=== PATIENT | male | born 1945 | race Two or more races ===

== ENCOUNTER 2020-09-06 13:15 | Outpatient (REF) | payer MEDICARE, SELFPAY | END 2020-09-06 13:16 | disposition home or self-care (01) | LOC: HO.HMGCLDS 13:15 | PROVIDERS: PCP Internal Medicine; Visit Provider Internal Medicine | DX: Z20.828 Contact with and (suspected) exposure to other viral communicable diseases (principal) | CPT/HCPCS: C9803; U0003 ==

== ENCOUNTER 2020-09-29 12:47 | Outpatient (REF) | payer MEDICARE, SELFPAY ==
[2020-09-29 14:00] LABS: MANUAL DIFF FLAG NO
[2020-09-29 14:02] LABS: Basophils Absolute Auto 0.1 X10*3/uL (0.0-0.2); Basophils Percent Auto 0.9 % (0-2); Eosinophils Absolute Auto 0.1 X10*3/uL (0.0-0.4); Eosinophils Percent Auto 1.7 % (0-4); Hematocrit 38.9 % (42-52); Hemoglobin 13.4 g/dl (14.0-18.0); Imm Gran Abs Auto 0.02 X10*3/uL (0.00-0.03); Imm Gran Pct Auto 0.2 % (0.0-0.4); Lymphocytes Absolute Auto 2.5 X10*3/uL (1.2-4.9); Lymphocytes Percent Auto 30.6 % (20-40); Mean Corpuscular HGB Conc 34.4 g/dl (31.0-36.0); Mean Corpuscular Hemoglobin 30.8 pg (27.0-33.0); Mean Corpuscular Volume 89.4 fL (80-98); Mean Platelet Volume 10.1 fL (9.4-12.4); Monocytes Absolute Auto 0.9 X10*3/uL (0.1-1.2); Monocytes Percent Auto 10.5 % (2-11); Neutrophils Absolute Auto 4.6 X10*3/uL (2.0-8.3); Neutrophils Percent Auto 56.1 % (45-73); Platelet Count 207 X10*3/uL (160-400); Red Blood Count 4.35 X10*6/uL (4.60-5.80); Red Cell Distribution Width 11.9 % (11.0-16.0); White Blood Count 8.2 X10*3/uL (4.8-10.8)
[2020-09-29 14:33] LABS: Alanine Aminotransferase 34 U/L (0-40); Albumin Level 4.1 g/dL (3.5-5.0); Alkaline Phosphatase 83 U/L (39-117); Anion Gap 11 (12-20); Aspartate Amino Transferase 24 U/L (5-37); Bilirubin Total 0.7 mg/dL (0.0-1.0); Blood Urea Nitrogen 35 mg/dL (9-16); Calcium 9.1 mg/dL (8.4-10.2); Carbon Dioxide 28 mmol/L (22-29); Chloride 104 mmol/L (96-108); Cholesterol 125 mg/dL; Estimated Glomerular Filt Rate 41; Glucose Random 104 mg/dL (60-115); HDL Cholesterol 37 mg/dL; LDL Cholesterol Calculated 75 mg/dl; Potassium 4.4 mmol/l (3.3-5.1); Sodium 139 mmol/L (135-145); Total Protein 7.7 g/dL (6.5-8.0); Triglycerides 68 mg/dL
[2020-09-29 14:51] LABS: Vitamin B12 483 pg/mL (200-900)
== END 2020-09-29 12:48 | disposition home or self-care (01) ==
LOC: HO.HMGCLDS 12:47
PROVIDERS: Internal Medicine; PCP Internal Medicine; Visit Provider Internal Medicine
DX: E78.00 Pure hypercholesterolemia, unspecified (principal); E11.65 Type 2 diabetes mellitus with hyperglycemia; N40.0 Benign prostatic hyperplasia without lower urinary tract symptoms; E11.22 Type 2 diabetes mellitus with diabetic chronic kidney disease; N18.30 Chronic kidney disease, stage 3 unspecified
CPT/HCPCS: 36415; 80053; 80061; 82607; 84443; 85025

== ENCOUNTER → 2020-10-07 09:27 | Outpatient (BNVA) | payer MEDICARE, SELFPAY | PROVIDERS: PCP Internal Medicine; Referring Provider Internal Medicine; Visit Provider Nurse Practitioner Gerontology | DX: E11.65 Type 2 diabetes mellitus with hyperglycemia (principal); E11.22 Type 2 diabetes mellitus with diabetic chronic kidney disease; N18.30 Chronic kidney disease, stage 3 unspecified; E78.00 Pure hypercholesterolemia, unspecified | CPT/HCPCS: 82947; Q3014 ==

== ENCOUNTER 2020-10-07 11:42 | Outpatient (REF) | payer MEDICARE, SELFPAY ==
[2020-10-07 14:10] LABS: Estimated Average Glucose 154 mg/dL
[2020-10-13 06:17] LABS: Fructosamine 322 umol/L (205-285)
== END 2020-10-07 11:43 | disposition home or self-care (01) ==
LOC: HO.10HDL 11:42
PROVIDERS: Visit Provider Nurse Practitioner Gerontology
DX: E11.22 Type 2 diabetes mellitus with diabetic chronic kidney disease (principal); N18.30 Chronic kidney disease, stage 3 unspecified
CPT/HCPCS: 82985; 83036

== ENCOUNTER → 2020-11-11 08:41 | Outpatient (BNVA) | payer MEDICARE, SELFPAY | PROVIDERS: PCP Internal Medicine; Visit Provider Nurse Practitioner Gerontology | DX: E11.65 Type 2 diabetes mellitus with hyperglycemia (principal); E11.22 Type 2 diabetes mellitus with diabetic chronic kidney disease; N18.30 Chronic kidney disease, stage 3 unspecified; E78.00 Pure hypercholesterolemia, unspecified | CPT/HCPCS: Q3014 ==

== ENCOUNTER → 2020-11-24 12:53 | Outpatient (BNVA) | payer MEDICARE, OTHER, SELFPAY | PROVIDERS: PCP Internal Medicine; Visit Provider Urology | DX: R39.15 Urgency of urination (principal); R19.12 Hyperactive bowel sounds; N40.0 Benign prostatic hyperplasia without lower urinary tract symptoms | CPT/HCPCS: 51798; 81002; 99202 ==

== ENCOUNTER 2020-12-13 13:57 | Outpatient (REF) | payer MEDICARE, OTHER, SELFPAY ==
--- NOTE | ~2020-12-13 | US_ITS ---
EXAMINATION: US PELVIS LIMITED (BLADDER) CLINICAL INFORMATION: Poor urinary stream. COMPARISON: None TECHNIQUE: Real-time imaging of the bladder. FINDINGS: BLADDER: Urinary bladder wall is thickened. There is a large median lobe of the prostate gland impressing upon the inferior posterior aspect of the urinary bladder. Bilateral ureteral jets are demonstrated. Prevoid bladder volume is 298 mL. Postvoid bladder volume is 107 mL. US/US bladder IMPRESSION: Thick-walled urinary bladder with large post void residual. Enlarged prostate gland with large median lobe.
== END 2020-12-13 13:58 | disposition home or self-care (01) ==
LOC: HO.US 13:57
PROVIDERS: PCP Internal Medicine; Visit Provider Urology
DX: R39.12 Poor urinary stream (principal); N40.0 Benign prostatic hyperplasia without lower urinary tract symptoms
CPT/HCPCS: 76857

== ENCOUNTER → 2021-03-01 10:26 | Outpatient (BNVA) | payer MEDICARE, SELFPAY | PROVIDERS: PCP Internal Medicine; Visit Provider Nurse Practitioner Gerontology | DX: E11.65 Type 2 diabetes mellitus with hyperglycemia (principal); E11.22 Type 2 diabetes mellitus with diabetic chronic kidney disease; N18.30 Chronic kidney disease, stage 3 unspecified; E78.00 Pure hypercholesterolemia, unspecified | CPT/HCPCS: 82947; Q3014 ==

== ENCOUNTER → 2021-03-31 07:24 | Outpatient (BNVA) | payer MEDICARE, SELFPAY | PROVIDERS: PCP Internal Medicine; Visit Provider Nurse Practitioner Gerontology | CPT/HCPCS: Q3014 ==

== ENCOUNTER → 2021-05-02 10:44 | Outpatient (BNVA) | payer MEDICARE, SELFPAY | PROVIDERS: PCP Internal Medicine; Visit Provider Nurse Practitioner Gerontology | DX: E11.65 Type 2 diabetes mellitus with hyperglycemia (principal); E11.22 Type 2 diabetes mellitus with diabetic chronic kidney disease; N18.30 Chronic kidney disease, stage 3 unspecified; E78.00 Pure hypercholesterolemia, unspecified; Z79.4 Long term (current) use of insulin | CPT/HCPCS: Q3014 ==

== ENCOUNTER 2021-05-10 10:16 | Outpatient (REF) | payer MEDICARE, SELFPAY ==
[2021-05-10 11:30] LABS: Estimated Average Glucose 154 mg/dL
[2021-05-10 12:08] LABS: Creatinine Urine 97.05 mg/dL; Microalbum/Creatinine Ratio Ur 48.4 ug/mg cr
[2021-05-10 12:11] LABS: Alanine Aminotransferase 39 U/L (0-40); Albumin Level 4.1 g/dL (3.5-5.0); Alkaline Phosphatase 92 U/L (39-117); Anion Gap 13 (12-20); Aspartate Amino Transferase 26 U/L (5-37); Bilirubin Total 0.7 mg/dL (0.0-1.0); Blood Urea Nitrogen 30 mg/dL (9-16); Calcium 9.7 mg/dL (8.4-10.2); Carbon Dioxide 23 mmol/L (22-29); Chloride 107 mmol/L (96-108); Cholesterol 138 mg/dL; Estimated Glomerular Filt Rate 38; Glucose Fasting 133 mg/dL (60-99); HDL Cholesterol 31 mg/dL; LDL Cholesterol Calculated 74 mg/dl; Potassium 4.7 mmol/L (3.3-5.1); Sodium 138 mmol/L (135-145); Total Protein 7.8 g/dL (6.5-8.0); Triglycerides 169 mg/dL
== END 2021-05-10 10:17 | disposition home or self-care (01) ==
LOC: HO.LAB 10:16
PROVIDERS: PCP Physician Assistant Medical; Visit Provider Nurse Practitioner Gerontology
DX: E11.22 Type 2 diabetes mellitus with diabetic chronic kidney disease (principal); N18.30 Chronic kidney disease, stage 3 unspecified
CPT/HCPCS: 36415; 80053; 80061; 82043; 83036

== ENCOUNTER → 2021-08-31 13:22 | Outpatient (BNVA) | payer MEDICARE, OTHER, SELFPAY | PROVIDERS: PCP Physician Assistant Medical; Visit Provider Nurse Practitioner Gerontology | CPT/HCPCS: Q3014 ==

== ENCOUNTER → 2021-12-01 10:53 | Outpatient (BNVA) | payer MEDICARE, SELFPAY | PROVIDERS: PCP Physician Assistant Medical; Visit Provider Urology | DX: N40.1 Benign prostatic hyperplasia with lower urinary tract symptoms (principal); R39.12 Poor urinary stream; R39.15 Urgency of urination; R33.8 Other retention of urine | CPT/HCPCS: 52000; 99212 ==

== ENCOUNTER → 2022-01-26 12:00 | Outpatient (BNVA) | payer MEDICARE, SELFPAY | PROVIDERS: PCP Physician Assistant Medical; Visit Provider Nurse Practitioner Gerontology | DX: E11.65 Type 2 diabetes mellitus with hyperglycemia (principal); E11.22 Type 2 diabetes mellitus with diabetic chronic kidney disease; N18.9 Chronic kidney disease, unspecified; E78.00 Pure hypercholesterolemia, unspecified | CPT/HCPCS: 82947; 83036; 99212 ==

== ENCOUNTER 2022-02-02 12:05 | Emergency (ER) | payer MEDICARE, SELFPAY ==
--- NOTE | 2022-02-02 12:20 | ED_ITS ---
HPI - General Adult General Chief complaint: Urogenital-Male Stated complaint: painful urination, burning Time Seen by Provider: 02/02/22 12:20 Source: patient and family Mode of arrival: ambulatory Limitations: language barrier (declined lang interpreter) History of Present Illness HPI narrative: 32 more year old male with a history of high cholesterol, glaucoma mild, diabetes, chronic kidney disease, anemia, BPH followed by Urology (on finasteride 5mg, flomax 0.8mg) here with reports of 1 month of dysuria, voiding small amounts, feeling like he is retaining his urine with testicular discomfort. No fevers, chills, abdominal pain, back pain, vomiting. Related Data Home Medications Medication Instructions Recorded Confirmed oxygen-air delivery systems #1 07/28/20 01/02/22 Previous Rx's Medication Instructions Recorded bimatoprost 0.01 % eye drops 1 drp OPHTHALMIC (EYE) DAILY #7.5 09/16/20 (Lumigan) ml dorzolamide 2 %-timolol 0.5 % (PF) 1 drp OPHTHALMIC (EYE) Q12H #10 ml 09/16/20 eye drops blood-glucose meter (OneTouch #1 ea 10/07/20 Verio Flex meter) blood sugar diagnostic (OneTouch #100 ea 03/09/21 Verio test strips) empagliflozin 25 mg tablet 25 mg PO QAM #90 tab 08/31/21 (Jardiance) finasteride 5 mg tablet 5 mg PO DAILY 90 Days #90 tab 12/01/21 pravastatin 20 mg tablet 20 mg PO DAILY #90 tab 12/14/21 tamsulosin 0.4 mg capsule 0.8 mg PO BEDTIME 90 Days #180 cap 12/14/21 lancets 33 gauge (OneTouch Delica #100 ea 12/21/21 Lancets) glucagon 3 mg/actuation nasal 3 mg INTRANASAL ONCE 30 Days #2 ea 01/25/22 spray (Baqsimi) glucose 4 gram chewable tablet 12 g PO Q15M PRN #60 tab 01/25/22 (Dex4 Glucose) insulin glargine 100 unit/mL (3 10 unit (0.1 mL) SUBCUT QPM #15 ml 01/26/22 mL) subcutaneous pen (Lantus Solostar U-100 Insulin) insulin lispro 100 unit/mL 6 unit (0.06 mL) SUBCUT TID #15 ml 01/26/22 subcutaneous pen (Humalog KwikPen (U-100) Insulin) Allergies Allergy/AdvReac Type Severity Reaction Status Date / Time No Known Allergies Allergy Verified 01/26/22 12:06 Review of Systems Review of Systems: Yes all other systems are reviewed and are negative Constitutional: Constitutional: Reports no additional constitutional complaints, Denies body ache(s), Denies chills, Denies fever(s), Denies headache(s) and Denies weakness Eyes: Eyes: Reports no additional eye complaints and Denies change in vision ENT: Reports system reviewed and no additional complaints, except as docum ented, Denies dizziness, Denies headache(s), Denies nasal congestion, Denies nasal discharge and Denies neck pain Cardiovascular: Cardiovascular: Reports no additional cardiovascular complaints, Denies chest pain, Denies leg edema and Denies dyspnea Respiratory: Respiratory: Reports no additional respiratory complaints, Denies cough and Denies dyspnea Gastrointestinal: Gastrointestinal: Reports no additional gastrointestinal complaints, Denies abdominal pain, Denies diarrhea, Denies nausea and Denies vomiting Genitourinary: Genitourinary: Reports dysuria, Denies penile discharge, Reports testicular pain, Denies urinary frequency, Reports urinary hesitancy, Denies urinary incontinence and Reports urinary urgency Musculoskeletal: Musculoskeletal: Reports no additional musculoskeletal complaints, Denies back pain, Denies arthralgias, Denies joint swelling, Denies neck pain, Denies numbness and Denies tingling Integumentary/Breasts: Skin/Breast: Reports system reviewed and no additional complaints, except as docu and Denies rash Neurologic: Reports system reviewed and no additional complaints, except as documented, Denies dizziness, Denies headache(s), Denies numbness, Denies tingling and Denies weakness [facility] Past Medical History Attestation statement: The following information was validated with the patient. Source: old records reviewed and nursing notes reviewed Medical History Anemia in chronic kidney disease (CKD) BPH (benign prostatic hyperplasia) Cataract CKD (chronic kidney disease) stage 3, GFR 30-59 ml/min COVID-19 vaccine series completed Diabetes mellitus type 2, uncontrolled Glaucoma Hypercholesteremia Kidney cysts Legally blind JOSÉ MIGUEL (obstructive sleep apnea) Type 2 diabetes mellitus with chronic kidney disease Type 2 diabetes mellitus with hyperglycemia Surgical History H/O colonoscopy History of open reduction and internal fixation (ORIF) procedure Hx of tooth extraction Family History Family History Sister Colon cancer Social History Social History Household Members: Spouse Are you a primary career representative to a significant other at home: No Alcohol intake: former Patient Tobacco Use Status: Former Tobacco user Quit Date: years ago per daughter Tobacco use type: Cigarette Advance Directives: No Advance Directives Information Provided: No Physical Exam ED Vital Signs: Vital Signs - 24 hr 02/02/22 12:22 02/02/22 15:55 Temperature 97.6 F Pulse Rate 72 63 Respiratory Rate 18 16 Blood Pressure 121/63 129/60 Pulse Oximetry 98 94 BMI result Body Mass Index 23.3 Const General: cooperative, healthy appearing, comfortable and no acute distress Orientation/consciousness: patient oriented x3 Limitations: no limitations HENMT Head: Yes normal to inspection Ears: hearing grossly normal bilaterally General nose exam: Normal external nose present Face and sinus: Yes normal facial exam Mouth: Normal oral and palatal mucosa present Teeth and gingiva: dentition normal Throat: Yes posterior oropharynx normal Eyes General: appearance normal, both eyes and all related structures Pupils: Equal, round and reactive pupils present Neck Neck: Yes normal visual inspection, Yes full ROM, Yes no lymphadenopathy and Yes no meningeal signs Chest Chest palpation & inspection: normal inspection of the chest Resp Effort & Inspection: normal respiratory effort Auscultation: clear to auscultation bilaterally Cardio Rate: regular rate Rhythm: regular rhythm Peripheral pulses: Peripheral pulses 2+ throughout GI Inspection: Yes normal to inspection Palpation (GI): Soft to palpation and nontender General: Yes no CVA tenderness Penis: normal penis and circumcised Meatus: meatus normal Scrotum: scrotum normal Testes: Testes normal, no testicular mass, no testicular swelling and no testicular tenderness Back/Spine/Pelvis Back: no CVA tenderness Thoracic/Lumbar Spine: thoracic and lumbar spine normal to inspection Skin General skin exam: no rashes or lesions noted Neuro General: patient oriented x3, moves all extremities and no meningeal signs Cranial nerves: Yes Equal, round and reactive pupils present Course Course Course Narrative: 1220-This is a rapid medical exam. 76 yo male with history of BPH here with testicular pain, difficulty urinating, voiding small amounts, dysuria x1 month. Will check labs, UA. Reevaluation(s) Reevaluation #1: Normal exam. No abdominal pain or flank pain. UA is negative. Labs are unremarkable. Patient voided 175 cc of urine. Postvoid residual was 240. Patient has a urologist and has an appointment in February to be seen. D/t feeling quite symptomatic with retention-likely secondary to BPH will place FC and have f/u outpatient with urology. Time: 16:00 Reevaluation #2: Mclaughlin catheter placed by nursing at the bedside. Will have patient follow-up with Urology outpatient. Reviewed worrisome signs and symptoms of when to return to the emergency department. Comfortable discharge home. Medical Decision Making Medical Records Medical records reviewed: Yes I reviewed the patient's medical records. Lab Data Lab results reviewed: Yes I reviewed the patient's lab results. Result diagrams: 02/02/22 12:48 02/02/22 12:48 Labs: Lab Results 02/02/22 02/02/22 02/02/22 Range/Units 12:48 12:48 13:28 WBC 8.3 (4.8-10.8) X10*3/uL RBC 4.48 L (4.60-5.80) X10*6/uL Hgb 14.0 (14.0-18.0) g/dl Hct 40.7 L (42.0-52.0) % MCV 90.8 (80.0-98.0) fL MCH 31.3 (27.0-33.0) pg MCHC 34.4 (31.0-36.0) g/dl RDW 12.4 (11.0-16.0) % Plt Count 237 (160-400) X10*3/uL MPV 9.5 (9.4-12.4) fL Immature Gran % (Auto) 0.4 (0.0-0.4) % Neut % (Auto) 61.7 (45-73) % Lymph % (Auto) 26.0 (20-40) % [place] % (Auto) 10.0 (2-11) % Eos % (Auto) 1.2 (0-4) % Baso % (Auto) 0.7 (0-2) % Lymph # (Auto) 2.2 (1.2-4.9) X10*3/uL [place] # (Auto) 0.8 (0.1-1.2) X10*3/uL Eos # (Auto) 0.1 (0.0-0.4) X10*3/uL Baso # (Auto) 0.1 (0.0-0.2) X10*3/uL Abs Immat Gran (auto) 0.03 (0.00-0.03) X10*3/uL Absolute Neuts (auto) 5.1 (2.0-8.3) x10*3/uL Absolute Nucleated RBC 0.000 (0.0-0.012) X10*3/uL Nucleated RBC % (auto) 0.0 (0.0-0.2) /100WBC Sodium 138 (135-145) mmol/L Potassium 4.7 (3.3-5.1) mmol/L Chloride 104 (96-108) mmol/L Carbon Dioxide 28 (22-29) mmol/L Anion Gap 11 L (12-20) BUN 30 H (9-16) mg/dL Creatinine 1.85 H (0.5-1.4) mg/dL Estim Creat Clear Calc 30.4 Estimated GFR 36 Random Glucose 143 H D (60-115) mg/dL Calcium 9.4 (8.4-10.2) mg/dL Urine Color YELLOW Urine Appearance HAZY Urine pH 6.5 (5.0-8.0) Ur Specific [place] 1.010 (1.005-1.025) Urine Protein NEG (NEG-TRACE) MG/DL Urine Glucose (UA) 100 H (NEG) MG/DL Urine Ketones NEG (NEG) MG/DL Urine Blood NEG (NEG) Urine Nitrite NEG (NEG) Ur Leukocyte Esterase NEG (NEG) Discharge Plan Discharge Clinical Impression: Acute retention of urine, CKD (chronic kidney disease) stage 3, GFR 30-59 ml/min Patient Disposition: Home, Self-Care Instructions: Urinary Retention in Men (ED), Chronic Kidney Disease (ED) Prescriptions: No Action (DME) OneTouch Verio test strips Strip See Rx Instructions .ROUTE .MEDSUPPLY Qty: 100 11RF Rx Instructions: As directed three times a day tamsulosin 0.4 mg capsule 0.8 mg PO BEDTIME 90 Days Qty: 180 0RF pravastatin 20 mg tablet 20 mg PO DAILY Qty: 90 1RF (DME) lancets [OneTouch Delica Lancets] 33 gauge [facility] [place] See Rx Instructions .ROUTE .MEDSUPPLY Qty: 100 11RF Rx Instructions: As directed three times a day glucose [Dex4 Glucose] 4 gram tablet,chewable 12 g PO Q15M PRN (Reason: hypoglycemia) Qty: 60 2RF Rx Instructions: until symptoms of low blood sugar are controlled Baqsimi 3 mg/actuation spray,non-aerosol 3 mg intranasal ONCE 30 Days Qty: 2 6RF Rx Instructions: [place] once for severe hypoglycemia when patient cannot self-treat with glucose. Afterwards turn on side. May repeat after 15 minutes if patient does not respond. (DME) oxygen-air delivery systems Device See Rx Instructions .ROUTE .MEDSUPPLY Qty: 1 0RF Rx Instructions: As directed Lumigan 0.01 % drops 1 drp ophthalmic (eye) DAILY Qty: 7.5 0RF dorzolamide-timolol (PF) 2-0.5 % drops 1 drp ophthalmic (eye) Q12H Qty: 10 0RF (DME) blood-glucose meter [OneTouch Verio Flex meter] [facility] [place] See Rx Instructions .ROUTE .MEDSUPPLY Qty: 1 0RF Rx Instructions: As directed three carline a day Jardiance 25 mg tablet 25 mg PO QAM Qty: 90 1RF finasteride 5 mg tablet 5 mg PO DAILY 90 Days Qty: 90 1RF Lantus Solostar U-100 Insulin 100 unit/mL (3 mL) insulin pen 10 unit subcut QPM Qty: 15 8RF insulin lispro [Humalog KwikPen Insulin] 100 unit/mL insulin pen 6 unit subcut TID Qty: 15 6RF Referrals: Rogelio Devine MD [Primary Care Provider] - Interventions: ED Discharge Assessment Last Done: 02/02/22 17:02 Discharge Date/Time: 02/02/22 17:04 Print Language: Yemeni
[2022-02-02 12:22] VITALS: BP 121/63; PULSE 72; RESP 18; TEMP 36.4; O2SAT 98; BMI 23.3
[2022-02-02 12:52] LABS: MANUAL DIFF FLAG NO
[2022-02-02 12:54] LABS: Basophils Absolute Auto 0.1 X10*3/uL (0.0-0.2); Basophils Percent Auto 0.7 % (0-2); Eosinophils Absolute Auto 0.1 X10*3/uL (0.0-0.4); Eosinophils Percent Auto 1.2 % (0-4); Hematocrit 40.7 % (42.0-52.0); Imm Gran Abs Auto 0.03 X10*3/uL (0.00-0.03); Imm Gran Pct Auto 0.4 % (0.0-0.4); Lymphocytes Absolute Auto 2.2 X10*3/uL (1.2-4.9); Mean Corpuscular HGB Conc 34.4 g/dl (31.0-36.0); Mean Corpuscular Hemoglobin 31.3 pg (27.0-33.0); Mean Corpuscular Volume 90.8 fL (80.0-98.0); Mean Platelet Volume 9.5 fL (9.4-12.4); Monocytes Absolute Auto 0.8 X10*3/uL (0.1-1.2); Neutrophils Absolute Auto 5.1 x10*3/uL (2.0-8.3); Neutrophils Percent Auto 61.7 % (45-73); Platelet Count 237 X10*3/uL (160-400); Red Blood Count 4.48 X10*6/uL (4.60-5.80); Red Cell Distribution Width 12.4 % (11.0-16.0); White Blood Count 8.3 X10*3/uL (4.8-10.8)
[2022-02-02 13:07] LABS: Anion Gap 11 (12-20); Blood Urea Nitrogen 30 mg/dL (9-16); Calcium 9.4 mg/dL (8.4-10.2); Carbon Dioxide 28 mmol/L (22-29); Chloride 104 mmol/L (96-108); Creatinine Clr Calc Pharmacy 30.4; Estimated Glomerular Filt Rate 36; Glucose Random 143 mg/dL (60-115); Potassium 4.7 mmol/L (3.3-5.1); Sodium 138 mmol/L (135-145)
[2022-02-02 13:36] LABS: Appearance Urine HAZY; Color Urine YELLOW; Glucose Urine UA 100 MG/DL (NEG); Leukocyte Esterase Urine NEG (NEG); Nitrite Urine NEG (NEG); PH 6.5 (5.0-8.0); Urine Blood NEG (NEG); Urine Ketones NEG (NEG); Urine Protein NEG (NEG-TRACE)
[2022-02-02 15:55] VITALS: BP 129/60; PULSE 63; RESP 16; O2SAT 94
[2022-02-02] MEDS: Lidocaine HCl 2 % Urojet 10 ML JEL.PF.APP TOPICAL (16:36)
--- NOTE | 2022-02-02 16:41 | PC.NURSE ---
16 albanian coudet placed without problem as traditional simmons was unsuccessful to place . draining clear yellow urine. will give discharge instructions with radio division officer
== END 2022-02-02 17:04 | disposition home or self-care (01) ==
PROVIDERS: Nurse Practitioner Family; Emergency Provider Emergency Medicine; PCP Urology
DX: R30.0 Dysuria (principal); R33.9 Retention of urine, unspecified; E11.9 Type 2 diabetes mellitus without complications; E11.22 Type 2 diabetes mellitus with diabetic chronic kidney disease; N18.30 Chronic kidney disease, stage 3 unspecified; Z79.4 Long term (current) use of insulin; Z87.891 Personal history of nicotine dependence; Z79.899 Other long term (current) drug therapy
CPT/HCPCS: 36415; 51798; 80048; 81003; 85025; 99284

== ENCOUNTER → 2022-02-07 13:22 | Outpatient (BNVA) | payer MEDICARE, SELFPAY | PROVIDERS: Visit Provider Urology | DX: Z46.6 Encounter for fitting and adjustment of urinary device (principal); N40.0 Benign prostatic hyperplasia without lower urinary tract symptoms | CPT/HCPCS: 51702 ==

== ENCOUNTER → 2022-02-20 09:05 | Outpatient (BNVA) | payer MEDICARE, SELFPAY | PROVIDERS: PCP Physician Assistant Medical; Visit Provider Urology | DX: N40.0 Benign prostatic hyperplasia without lower urinary tract symptoms (principal) | CPT/HCPCS: 51700 ==

== ENCOUNTER → 2022-03-08 09:20 | Outpatient (BNVA) | payer MEDICARE, SELFPAY | PROVIDERS: PCP Physician Assistant Medical; Visit Provider Urology | DX: N40.1 Benign prostatic hyperplasia with lower urinary tract symptoms (principal); R39.15 Urgency of urination; R39.12 Poor urinary stream | CPT/HCPCS: Q3014 ==

== ENCOUNTER 2022-03-14 08:59 | Outpatient (REF) | payer MEDICARE, SELFPAY ==
[2022-03-14 11:00] LABS: Alanine Aminotransferase 51 U/L (0-40); Alkaline Phosphatase 87 U/L (39-117); Anion Gap 11 (12-20); Aspartate Amino Transferase 29 U/L (5-37); Bilirubin Total 0.5 mg/dL (0.0-1.0); Blood Urea Nitrogen 26 mg/dL (9-16); Calcium 9.9 mg/dL (8.4-10.2); Carbon Dioxide 28 mmol/L (22-29); Chloride 105 mmol/L (96-108); Cholesterol 172 mg/dL; Estimated Glomerular Filt Rate 39; Glucose Fasting 71 mg/dL (60-99); HDL Cholesterol 35 mg/dL; LDL Cholesterol Calculated 101 mg/dl; Potassium 4.1 mmol/L (3.3-5.1); Sodium 140 mmol/L (135-145); Triglycerides 180 mg/dL
[2022-03-15 21:54] LABS: LDL Cholesterol Direct 115 mg/dL (<100)
== END 2022-03-14 09:00 | disposition home or self-care (01) ==
LOC: HO.LAB 08:59
PROVIDERS: Visit Provider Nurse Practitioner Gerontology
DX: E11.22 Type 2 diabetes mellitus with diabetic chronic kidney disease (principal); N18.9 Chronic kidney disease, unspecified
CPT/HCPCS: 36415; 80053; 80061; 83721

== ENCOUNTER 2022-03-14 09:31 | Outpatient (REF) | payer MEDICARE, OTHER, SELFPAY ==
[2022-03-14 10:03] LABS: COVID-19 Test Negative (Negative)
== END 2022-03-14 09:32 | disposition home or self-care (01) ==
LOC: HO.LAB 09:31
PROVIDERS: Visit Provider Internal Medicine
DX: Z20.822 Contact with and (suspected) exposure to COVID-19 (principal)
CPT/HCPCS: 87635; C9803

== ENCOUNTER 2022-03-15 15:19 | Outpatient (REF) | payer MEDICARE, OTHER, SELFPAY ==
[2022-03-15 16:35] LABS: Creatinine Urine 53.91 mg/dL
== END 2022-03-15 15:20 | disposition home or self-care (01) ==
LOC: HO.LNP 15:19
PROVIDERS: Visit Provider Nurse Practitioner Gerontology
DX: E11.22 Type 2 diabetes mellitus with diabetic chronic kidney disease (principal); N18.9 Chronic kidney disease, unspecified
CPT/HCPCS: 82043

== ENCOUNTER 2022-03-19 07:16 | Day surgery (SDC) | payer MEDICARE, OTHER, SELFPAY ==
--- NOTE | 2022-03-16 12:04 | P.CONAN_ITS ---
Documented by User: Leila Villegas NP 03/16/22 12:06 HPI - Anesthesia Eval Consult details Narrative: 76yo M for Laser Ablation Prostate w/Green Light Legally blind PMFSH Active Problems Active Problems: All Active Problems (Updated 02/03/22 @ 00:01 by Jim Guan) Blind (Acute) Weak urinary stream (Acute) Urinary urgency (Acute) Hypercholesteremia (Acute) Glaucoma (Acute) BPH (benign prostatic hyperplasia) (Acute) Type 2 diabetes mellitus with hyperglycemia (Acute) CKD (chronic kidney disease) stage 3, GFR 30-59 ml/min (Acute) Diabetes mellitus type 2, uncontrolled (Acute) Type 2 diabetes mellitus with chronic kidney disease (Acute) Anemia in chronic kidney disease (CKD) (Acute) Past Medical History Medical History Anemia in chronic kidney disease (CKD) BPH (benign prostatic hyperplasia) Cataract CKD (chronic kidney disease) stage 3, GFR 30-59 ml/min COVID-19 vaccine series completed Diabetes mellitus type 2, uncontrolled Mclaughlin catheter in place Glaucoma Hypercholesteremia Kidney cysts Legally blind JOSÉ MIGUEL (obstructive sleep apnea) Type 2 diabetes mellitus with chronic kidney disease Type 2 diabetes mellitus with hyperglycemia Family History Family History Sister Colon cancer Surgical History Surgical History H/O colonoscopy History of open reduction and internal fixation (ORIF) procedure Hx of tooth extraction Social History Social History Household Members: Spouse Are you a primary continuum of care manager to a significant other at home: No Alcohol intake: former Patient Tobacco Use Status: Former Tobacco user Quit Date: years ago per daughter Tobacco use type: Cigarette Use of substances other than those prescribed or required for medical reasons: No Are you DNR?: No Advance Directives: No Advance Directives Information Provided: Yes Meds Allergies Allergy/AdvReac Type Severity Reaction Status Date / Time No Known Allergies Allergy Verified 03/08/22 09:21 Home Medications Medication Instructions Recorded Confirmed Last Taken Type oxygen-air delivery systems #1 07/28/20 03/19/22 Unknown History insulin syringe-needle U-100 0.5 #10 ea 03/08/22 03/19/22 Unknown History mL 31 gauge x 5/16 Exam Exam Date and Time: March 16, 2022 1204 Narrative Narrative: Laboratory Tests 02/02/22 03/14/22 12:48 09:17 WBC 8.3 Hgb 14.0 Hct 40.7 L Plt Count 237 Sodium 140 Potassium 4.1 Chloride 105 Carbon Dioxide 28 BUN 26 H Creatinine 1.71 H Assessment and Plan Assessment Anesthesia Assessment: Chart Reviewed Documented by User: Sherri Martins MD 03/19/22 09:22 [facility] Past Medical History Medical History Anemia in chronic kidney disease (CKD) BPH (benign prostatic hyperplasia) Cataract CKD (chronic kidney disease) stage 3, GFR 30-59 ml/min COVID-19 vaccine series completed Diabetes mellitus type 2, uncontrolled Mclaughlin catheter in place Glaucoma Hypercholesteremia Kidney cysts Legally blind JOSÉ MIGUEL (obstructive sleep apnea) Type 2 diabetes mellitus with chronic kidney disease Type 2 diabetes mellitus with hyperglycemia Family History Family History Sister Colon cancer Surgical History Surgical History H/O colonoscopy History of open reduction and internal fixation (ORIF) procedure Hx of tooth extraction History of Problems with Anesthesia: No Social History Social History Household Members: Spouse Are you a primary continuum of care manager to a significant other at home: No Alcohol intake: former Patient Tobacco Use Status: Former Tobacco user Quit Date: years ago per daughter Tobacco use type: Cigarette Use of substances other than those prescribed or required for medical reasons: No Are you DNR?: No Advance Directives: No Advance Directives Information Provided: Yes Meds Allergies Allergy/AdvReac Type Severity Reaction Status Date / Time No Known Allergies Allergy Verified 03/08/22 09:21 Home Medications Medication Instructions Recorded Confirmed Last Taken Type oxygen-air delivery systems #1 07/28/20 03/19/22 Unknown History insulin syringe-needle U-100 0.5 #10 ea 03/08/22 03/19/22 Unknown History mL 31 gauge x /16 Exam Airway Mallampati Class: III TM Dist: >3cm Neck ROM: Limited Loose/Missing/Broken Teeth: No Heart: RRR Lungs: CTA Assessment and Plan Final Anesthetic Review History of Problems with Anesthesia: No NPO: Yes ASA Class: III Final Preanesthetic Review: Meds/Allgs Chart Reviewed, Consent Obtained/Reviewed and Anes Risks/Benef Reviewed Patient Risk: Intermediate Procedure Risk: Low Anesthetic Plan Anesthetic Plan: GA Disposition: Standard PACU
[2022-03-19] VITALS (9 sets, daily range): BP systolic 112–151; BP diastolic 47–95; PULSE 72–93; RESP 18; TEMP 36.7–37; O2SAT 92–99; BMI 24.4
[2022-03-19] MEDS: Dextrose 5 % and 0.9 % NaCl 1,000 ML 125 ML IVCONT (08:20)
--- NOTE | 2022-03-19 08:33 | MHC.SHP ---
Pre-Procedural Eval Section A Date of Service: 03/19/22 The patient is an INPATIENT: No Changes since office visit: No Cold of Flu in the past 2 weeks, No New Medical Problems, No Changes in Medication and No Patient answered all questions The History & Physical has been completed within 30 days and I have reviewed it.: Yes Section B Chief Complaint: BPH Allergies: Allergies Allergy/AdvReac Type Severity Reaction Status Date / Time No Known Allergies Allergy Verified 03/08/22 09:21 Plan Diagnosis/Plan: Unchanged (laser enucleation of the prostate) I have reviewed the history and physical and performed a pertinent physical examination on my patient. No changes have occurred unless specified.
--- NOTE | 2022-03-19 08:35 | PC.NURSE ---
repeat poc 174 @ 0834 s/p 200ml of d5ns
[2022-03-19] MEDS: Lactated Ringers 1,000 ML 100 ML IVCONT (08:45)
[2022-03-19 08:47] LABS: Glucose, Whole Blood 67 mg/dL (60-115)
[2022-03-19 08:47] LABS: Glucose, Whole Blood 174 mg/dL (60-115)
[2022-03-19 11:12] LABS: Glucose, Whole Blood 76 mg/dL (60-115)
--- NOTE | 2022-03-19 11:21 | P.OP_ITS ---
Operative Note Operative Note Date of Service: 03/19/22 Narrative: PreOperative Diagnosis: Bladder outlet obstruction Post Operative Diagnosis: Bladder outlet obstruction Procedure: GreenLight Laser Enucleation of the prostate Surgeon: Dr Rogelio Devine Anesthesia: General Indications for procedure: Large prostate History of bladder outlet obstruction. Treated with alpha-conor and other medications. Still with symptoms. On cystoscopy in office has trilobar prostate. Recommendation for prostate procedure with laser enucleation of prostate. It has been discussed. Focus was placed on development of retrograde examination which is a normal part of this procedure. Procedure: After informed consent was verified the patient was brought to the operating room and placed in a supine position. Anesthesia was administered per protocol. Patient was placed in modified dorsal lithotomy position and prepped and draped in a sterile fashion. Safety pause time-out was confirmed. Antibiotics have been given. Twenty-four Filipino laser cystoscope was inserted per urethra. No abnormalities found the anterior posterior urethra. The bladder was filled on both ureteric orifices were seen in normal position away from our area of interest. Using a GreenLight laser settings of 80 w incisions were made at the 5 and 7 o'clock position. They were taken down and then laterally on each side. They were brought from the bladder neck down to the level of the veru. These defined the lateral aspects of the median lobe area. the median lobe was extremely large. Incision was made through the middle of the median lobe to to pieces. Taking the left side 1st a another longitudinal incision was made to into 2 smaller pieces. Then the remnant pieces was sliced moving from lateral to medial and superior to inferior position ablating And removing prostate tissue. we approached the right median lobe similarly.The median lobe was ablated and enucleated tissue removed. The floor of the prostate was taken down in evened out and the lateral grooves were extended. This process took an hour and a half and completely opened up the prostate. A decision was made not to proceed with lateral lobe removal. When this was completed debris and pieces of prostate removed from the bladder. Both ureteric orifices were reviewed again in shown to be patent in away from any areas of energy damage. The apical area was reviewed in any stray ooze was controlled. A 22 Filipino 30 cc balloon Mclaughlin catheter was placed over stylet into the bladder. Clear efflux was obtained. 30 cc was placed in the balloon and gentle traction was placed. A snap was used to hold tension once the patient will be moved and transported. Once transportation its finish this novel be removed. A belladonna and opiate suppository was placed for postprocedure pain management. He tolerated procedure well was extubated in the operating and transferred in a stable condition to the recovery area. Total Power 298 kJ, 43 min lasing time Pathology: Prostate tissue Drains: Mclaughlin catheter
[2022-03-19] MEDS: Acetaminophen 325 MG TABLET 650 MG PO (11:31)
== END 2022-03-19 13:30 | disposition home or self-care (01) ==
PROVIDERS: PCP Physician Assistant Medical; Visit Provider Urology
PROC: (CPT 52648; principal; 2022-03-19 09:10)
DX: N40.1 Benign prostatic hyperplasia with lower urinary tract symptoms (principal); N32.0 Bladder-neck obstruction; R39.12 Poor urinary stream; R39.15 Urgency of urination; R33.9 Retention of urine, unspecified; N28.1 Cyst of kidney, acquired; E11.65 Type 2 diabetes mellitus with hyperglycemia; E11.22 Type 2 diabetes mellitus with diabetic chronic kidney disease; N18.30 Chronic kidney disease, stage 3 unspecified; D63.1 Anemia in chronic kidney disease; Z79.4 Long term (current) use of insulin; H54.8 Legal blindness, as defined in USA; H40.9 Unspecified glaucoma; G47.33 Obstructive sleep apnea (adult) (pediatric); Z87.891 Personal history of nicotine dependence; Z79.899 Other long term (current) drug therapy
CPT/HCPCS: 52648; 82947; 88305; J1956; J2405; J3010

== ENCOUNTER → 2022-03-23 10:03 | Outpatient (BNVA) | payer MEDICARE, OTHER, SELFPAY | PROVIDERS: Visit Provider Urology | DX: N40.0 Benign prostatic hyperplasia without lower urinary tract symptoms (principal) | CPT/HCPCS: 51700; 51798 ==